=== PATIENT | male | born 1965 | race Caucasian/White ===

== ENCOUNTER 2024-07-21 10:40 | Emergency (ER) | payer MEDICARE ==
[~2024-07-21] VITALS: Ht 185.4 cm; Wt 112.8 kg
[2024-07-21] MEDS ORDERED: INSULADS INJ (10:52)
[2024-07-21] MEDS ORDERED: NOVOINJ3 SC (10:52)
[2024-07-21] MEDS ORDERED: VENL75CA2 PO (10:54)
[2024-07-21] MEDS ORDERED: VENL150C43 PO (10:54)
[2024-07-21 11:49] LABS: VENOUS BASE EXCESS -5.6 (-2.0-2.0); VENOUS HCO3 21.1 MMOL/L (23.0-27.0); VENOUS O2 SATURATION 80.4 % (60.0-80.0); VENOUS PH 7.288 UNITS (7.330-7.430); VENOUS STANDARD HCO3 19.5 MMOL/L; VENOUS TOTAL CO2 22.4 MMOL/L (24.0-28.0)
[2024-07-21 11:54] LABS: BASO # 0.1 10^3/uL (0.0-0.2); BASO % 1.1 % (0.0-1.0); EOS # 0.1 10^3/uL (0.0-0.5); EOS % 0.9 % (0.0-3.0); HEMOGLOBIN 16.2 g/dl (13.5-17.5); LYMPH # 1.3 10^3/uL (1.5-5.0); MEAN CORPUSCULAR HEMOGLOBIN 30.8 pg (27.0-33.0); MEAN CORPUSCULAR HGB CONC 34.5 g/dl (32.0-36.5); MEAN CORPUSCULAR VOLUME 89.4 fl (80.0-96.0); MONO # 0.6 10^3/uL (0.0-0.8); MONO % 8.5 % (2.0-8.0); NEUTROPHILS # 4.5 10^3/uL (1.5-8.5); PLATELET COUNT, AUTOMATED 282 10^3/uL (150-450); RED BLOOD COUNT 5.26 10^6/uL (4.30-6.10); WHITE BLOOD COUNT 6.5 10^3/uL (4.0-10.0)
[2024-07-21] MEDS: ASPIRIN 81MG CHEW TABLET PO ONE (12:28)
[2024-07-21 12:30] VITALS: BP 120/81
[2024-07-21] MEDS: METOPROLOL TART 50 MG TAB PO ONE (12:30)
[2024-07-21 12:43] LABS: FREE T4 0.89 NG/DL (0.89-1.76)
[2024-07-21 12:46] LABS: HEMOGLOBIN A1c 9.5 % (4.0-6.0)
[2024-07-21 12:51] LABS: CK-MB VALUE MASS < 1.0 NG/ML (<3.6); CPK CREATINE PHOSPHOKINASE 114 U/L (46-171); MB/CK RELATIVE INDEX 0.87 (< OR =4)
[2024-07-21 12:53] LABS: THYROID STIMULATING HORMONE 3.077 uIU/ML (0.55-4.78)
[2024-07-21 13:06] LABS: LIPASE 57 U/L (12-53)
[2024-07-21 13:19] LABS: CK-MB VALUE MASS < 1.0 NG/ML (<3.6)
[2024-07-21 13:24] LABS: ALBUMIN 4.1 G/DL (3.2-5.2); ALKALINE PHOSPHATASE 79 U/L (40-129); ALT/SGPT 56 U/L (7.0-40); AST/SGOT 22 U/L (<34); BILIRUBIN,DIRECT 0.1 MG/DL (<0.4); BILIRUBIN,TOTAL 0.5 MG/DL (0.3-1.2); BLOOD UREA NITROGEN 22 MG/DL (9-23); CALCIUM LEVEL 9.7 MG/DL (8.3-10.6); CARBON DIOXIDE LEVEL 21 MMOL/L (20-31); CHLORIDE LEVEL 103 MMOL/L (98-107); CPK CREATINE PHOSPHOKINASE 95 U/L (46-171); CREATININE FOR GFR 0.88 MG/DL (0.70-1.30); GLOMERULAR FILTRATION RATE > 90.0 (>49); GLUCOSE, FASTING 331 MG/DL (74-106); MB/CK RELATIVE INDEX 1.05 (< OR =4); POTASSIUM SERUM 4.5 MMOL/L (3.5-5.1); SODIUM LEVEL 134 MMOL/L (136-145); TOTAL PROTEIN 7.3 G/DL (5.7-8.2)
[2024-07-21] MEDS: HumuLIN R (REGULAR) INSULIN (NovoLIN R) **100U/ML** PER UNIT IV ONE (13:55)
[2024-07-21] MEDS ORDERED: LANTINJ4 SC (14:13)
[2024-07-21] MEDS ORDERED: AMLO25TA PO (14:13)
[2024-07-21] MEDS ORDERED: PROT1TAB2 PO (14:13)
[2024-07-21] MEDS ORDERED: INSU100I16 SQ (14:13)
[2024-07-21] MEDS ORDERED: VENL-37 PO ×2 (14:13→14:20)
[2024-07-21] MEDS ORDERED: AMLO2.5T3 PO (14:15)
[2024-07-21] MEDS ORDERED: PANT40TA29 PO (14:15)
[2024-07-21] MEDS ORDERED: ATOR1TAB19 PO (14:15)
[2024-07-21] MEDS ORDERED: HOME MED LIST COMPLETE! XX SCH (14:20)
[2024-07-21 15:16] VITALS: BP 129/73; TEMP 98.3; O2SAT 97
== END 2024-07-21 15:24 | disposition home or self-care (01) ==
LOC: M ED 10:40
DX: Z76.0 Encounter for issue of repeat prescription (principal); E11.65 Type 2 diabetes mellitus with hyperglycemia; I10 Essential (primary) hypertension; F17.200 Nicotine dependence, unspecified, uncomplicated
CPT/HCPCS: 71045; 80048; 80076; 82550; 82553; 82803; 83036; 83690; 84439; 84443; 84484; 85025; 93005; 93041; 94760; 99285; J1815